=== PATIENT | female | born 1985 | race Caucasian/White ===

== ENCOUNTER 2019-08-21 14:32 | Emergency (ER) | payer SELFPAY ==
[~2019-08-21] VITALS: Ht 157.5 cm; Wt 77.1 kg
[2019-08-21 14:35] VITALS: Ht 157.5 cm; Wt 77.1 kg
[2019-08-21 16:51] LABS: CALCIUM 8.2 mg/dL (8.5-10.1); CHLORIDE SERUM 98 mmol/L (98-107); CREATININE SERUM 1.4 mg/dL (0.6-1.0); GFR1 45 mL/min; GLUCOSE SERUM 130 mg/dL (74-106); POTASSIUM SERUM 3.1 mmol/L (3.5-5.1); SODIUM SERUM 133 mmol/L (136-145)
[2019-08-21 17:00] LABS: UA SPECIFIC GRAVITY <=1.005 (1.005-1.035); microscopic required? YES; urine erythrocyte 1+ (NEGATIVE)
[2019-08-21 17:00] LABS: BASOPHIL % 0.2 % (0-2); PLATELET COUNT 279 x10^3mcL (130-400)
[2019-08-21 17:01] LABS: RED CELL DISTRIBUTION WIDTH 18.7 % (11.5-14.5)
[2019-08-21 17:03] LABS: ALKALINE PHOSPHATASE 79 U/L (46-116); ALT/SGPT 21 U/L (14-59); AST/SGOT 27 U/L (15-37); BILIRUBIN TOTAL 0.8 mg/dL (0.20-1.00); LIPASE 75 IU/L (73-393); MAGNESIUM 1.5 mg/dL (1.8-2.4); T4(THYROXINE) 6.3 ug/dL (4.7-13.3); TOTAL PROTEIN, SERUM 7.7 g/dL (6.4-8.2)
[2019-08-21 17:07] LABS: ALBUMIN 3.2 g/dL (3.4-5.0)
[2019-08-21 17:18] LABS: AMPHETAMINE QUAL UR POSITIVE (See below)
[2019-08-21 20:06] VITALS: BP 110/65
== END 2019-08-21 20:06 | disposition home or self-care (01) ==
LOC: ED 14:32
PROVIDERS: Emergency Medicine
DX: N39.0 Urinary tract infection, site not specified (principal); K02.9 Dental caries, unspecified; F15.10 Other stimulant abuse, uncomplicated; F17.210 Nicotine dependence, cigarettes, uncomplicated; Z59.0 Homelessness; Z71.6 Tobacco abuse counseling
CPT/HCPCS: 82962; 87804; 99406; G0480; J1956; J7030; J7040

== ENCOUNTER 2020-08-13 22:56 | Emergency (ER) | payer SELFPAY ==
[~2020-08-13] VITALS: Ht 157.5 cm; Wt 68.0 kg
[2020-08-13 23:09] VITALS: Ht 157.5 cm; Wt 68.0 kg
[2020-08-14 01:17] LABS: BASOPHIL % 0.8 % (0-2); PLATELET COUNT 254 x10^3mcL (130-400)
[2020-08-14 01:18] LABS: RED CELL DISTRIBUTION WIDTH 18.6 % (11.5-14.5)
[2020-08-14 01:50] LABS: BILIRUBIN TOTAL 0.49 mg/dL (0.20-1.00); CALCIUM 8.5 mg/dL (8.5-10.1); CARBON DIOXIDE 25.1 mmol/L (21-32); CREATININE SERUM 1.1 mg/dL (0.6-1.0)
[2020-08-14 01:55] LABS: ALBUMIN 2.8 g/dL (3.4-5.0); TOTAL PROTEIN, SERUM 8.3 g/dL (6.4-8.2)
[2020-08-14 03:13] VITALS: BP 112/64
== END 2020-08-14 03:13 | disposition home or self-care (01) ==
LOC: ED 22:56
PROVIDERS: Emergency Medicine
DX: L03.115 Cellulitis of right lower limb (principal); E87.6 Hypokalemia

== ENCOUNTER 2020-09-01 02:14 | Emergency (ER) | payer SELFPAY ==
[~2020-09-01] VITALS: Ht 157.5 cm; Wt 78.5 kg
[2020-09-01 02:25] VITALS: BP 143/81; Ht 157.5 cm; Wt 78.5 kg
== END 2020-09-01 02:51 | disposition home or self-care (01) ==
LOC: ED 02:14
DX: H10.9 Unspecified conjunctivitis (principal)